=== PATIENT | female | born 1990 | race Caucasian/White ===

== ENCOUNTER 2025-02-05 14:01 | Outpatient (CLI) | payer SELFPAY ==
--- OUTSIDE RECORDS SUMMARY | 2025-02-05 14:07 | XMS_ITS | Encounter Summary ---
Author Organization Healthcare Address [address] [id number] Care Team Providers Care Millroom Supervisor Name Role Phone Pcp, No Primary Care Provider Unavailabl e Encounter Details Date Type Department Care Team (Late st Contact Info) Description 03/02/2020 [facility] [address] [place] [address] Dental, Provider, DDS [address] [place] [address] Social History Tobacco Use Types Packs/Day Years Used Date Smoking Tobacco: Never Assessed Comments Unknown Sex and Gender Information Value Date Recorded Sex Assigned at Not on file Legal Sex Female 6:09 PM EDT Gender Identity Not on file Sexual Orientation Not on file documented as of this encounter Plan of Treatment Not on file documented as of this encounter Visit Diagnoses Not on filedocumented in this encounter Additional Health Concerns Infection Onset Date Last Indicated Resolved Time COVID-19 Rule-Out 03/14/2021 03/14/2021 03/15/2021 6:25 AM EDT documented as of this encounter Care Teams Millroom Supervisor Relationship Specialty Start Date End Date Pcp, No [address] [place] [address] PCP - General 02/10/21 documented as of this encounter
--- OUTSIDE RECORDS SUMMARY | 2025-02-05 14:07 | XMS_ITS | Clinical Summary ---
Author Organization Healthcare Address [address] [place] [address] Care Team Providers Care Senior Accounting Clerk Name Role Phone Pcp, No Primary Care Provider Unavailabl e Allergies No known active allergies Medications * This document contains information received from the source organization and may not represent a complete record from that organization. acetaminophen (Tylenol) 325 MG tablet Take 2 tablets (650 mg) by mouth every 6 (six) hours. 30 tablet 1 3 Active levonorgestrel-eth inyl estradiol (Aviane, Alesse, Lessina) 0.1-20 MG-MCG tabletIndications: Encounter for initial prescription of contraceptive pills Take 1 tablet by mouth 1 (one) time each day. 84 tablet 3 3 Active Active Problems Problem Noted Date Diagnosed Date Term 05/14/2023 Resolved Problems Problem Noted Date Diagnosed Date Resolved Date Migraine without aura, not i ntractable, without status migrainosus 10/13/2022 Overview (10/13/2022): Patient denies history Immunizations Immunization Administration Dates Next Due Hep B, adult 02/18/2004,12/03/2003,09/25/2003 Influenza, Unspecified 05/17/2020,2018,04/15/2018,2016 Influenza, injectable, quadr ivalent, preservative free 06/07/2021 MMR 07/08/1996,09/06/1993 Pfizer-BioNTech COVID-19 Vac cine (Purple Cap) 12+ 07/07/2021 Tdap 03/09/2023,09/04/2016 Varicella 05/06/2018,04/05/2018 Family History Medical History Relation Name Comments Hypercholesterolemia Father Hypertension Father Clotting disorder Mother Diabetes Mother Stroke Other 1 Diabetes Other 2 JOSE MIGUEL disease Other 3 Hypertension Other 4 Kidney Infection Other 5 Hyperlipidemia Other 6 Conversions - Other Other 7 Other di seases of lung Stomach problems Other 8 Relation Name Status Comments Father Mother Other 1 Other 2 Other 3 Other 4 Other 5 Other 6 Other 7 Other 8 Social History Tobacco Use Types Packs/Day Years Used Date Smoking Tobacco: Former Smokeless Tobacco: Former Quit: 2017 Alcohol Use Standard Drinks/Week Comments Not Currently 0 (1 standard drink = 0.6 oz pure alcohol) Alcoholic Drinks/day: Social alcohol use [place] Depression Scale Answer Date Recorded [place] Depression Scale Total 8 06/20/2023 The thought of harming myself has occurred to me . Never 06/20/2023 CAGE ASSESSMENT Answer Date Recorded Cage unable to access Not on file 05/14/2023 Cage max number of drinks Not on file 2022 Cage Beverages a week Not on file 05/14/2023 Have you ever felt you should CUT down on your d rinking? 0 05/14/2023 Have you been ANNOYED by people criticizing your drinking? 0 05/14/2023 Have you felt GUILTY about your drinking? 0 05/14/2023 Have you had a drink first t jessica in the morning (EYE-CLINICAL QUALITY MANAGER) to steady your nerves or to get rid of a hangover? 0 05/14/2023 CAGE Questionnaire Score 0 023 Comments No Sex and Gender Information Value Date Recorded Sex Assigned at Not on file Legal Sex Female 6:09 PM EDT Gender Identity Not on file Sexual Orientation Not on file Last Filed Vital Signs Vital Sign Reading Time Taken Comments Blood Pressure 115/80 06/20/2023 9:09 AM EST Pulse 84 06/20/2023 9:09 AM EST Temperature 36.1 C (97 F) 06/20/2023 9:09 AM EST Respiratory Rate 18 05/16/2023 8:34 AM EDT Oxygen Saturation 97% 06/20/2023 9:09 AM EST Inhaled Oxygen Concentration - - Weight 74.6 kg (164 lb 7.4 oz) 06/20/2023 9:09 A M EST Height 174 cm (5' 8.5 ) 05/11/2023 9:00 AM EDT Body Mass Index 24.64 05/11/2023 9:00 AM EDT Plan of Treatment Health Maintenance Due Date Last Done Comments [facility]-Infant/Child/Adol SDOH Screenings 1992 [facility]-IPV Vaccines (2 of 3 - 4-dose series) 08/05/1996 07/08/1996 HPV Vaccines (1 - 3-dose series) 02/11/2007 [facility]- SDOH Screenings 02/11/2010 [facility]-Adult SDOH Screenings 02/11/2010 [id number] Vaccine ( season) 2024 08/09/2021, 07/07/2021 [facility]-Pap Smear 04/29/2024 04/29/2021, 08/07, 01/01/2015, Additional history exists [facility]-Depression Screening 06/20/2024 06/20/2023 [facility]-Influenza Vaccine (Season Ended) 2025 06/07/2021, 05/17/2020, 04/30/2019, Additional history exists [facility]-Cervical Cancer Screening 04/29/2026 [facility]-HPV/Cotest 04/29/2026 04/29/2021, 08/07, 01/01/2015, Additional history exists [facility]-DTaP,Tdap,and Td Vaccines (4 - Td or Tdap) 03/09/2033 03/09/2023, 09/04/2016, 07/08/1996 [facility]-Zoster Vaccines (1 of 2) 02/11/2042 05/06/2018, 04/05/2018 [facility]-Hepatitis B Vaccines Completed 004, 12/03/2003, 09/25/2003 [facility]-Varicella Vaccines Completed 05/06/2018, 2017 [facility]-HIV Screening Completed 10/13/2022, 04/29/2021 [facility]-Hepatitis C Screening Completed 10/13/2022, [facility]-HIB Vaccines Aged Out No longer e ligible based on patient's age to complete this topic [facility]-Hepatitis A Vaccines Aged Out No longer eligible based on patient's age to complete this topic [facility]-Pneumococcal Vaccine: Pediatrics (0 to 5 Years) and At-Risk Patients (6 to 49 Years) Aged Out No longer eligible based on patient's age to complete this topic [facility]-Rotavirus Vaccines Aged Out No lo nger eligible based on patient's age to complete this topic Goals Goal Patient Goal Type Associated Problems Recent Progress Patient-Stated? Author Delayed Delivery Care Plan CPM S22 PP LABOR (OBSTETRICS) No Open Scheduling, Background Procedures Procedure Name Priority Date/Time Associated Diagnosis Comments HEPATITIS C ANTIBODY W/REFLEX TO HCV QUANT PCR Routine 10/13/2022 11:27 AM EST 9 weeks gestation of HIV 1/2 ANTIBODY/ANTIGEN SCREEN WITH REFLEX TO HIV I/II DIFFERENTIATION Routine 10/13/2022 11:27 AM EST 9 weeks gestation of PAP TEST - CYTOLOGY Routine 04/29/2021 4 :09 PM EDT Screening for cervical cancer from Last 3 Months or Most Recently Relevant to Health Maintenance Results * HIV 1 & 2 Antibody/Antigen Screen (10/13/2022 11:27 AM EST) HIV 1 & 2 Antibody/Antigen Screen Non Reactive Non Reactive 10/13/2022 3:28 PM EST [facility] Comment:Screening for HIV 1 & 2 antibodies, and P24 antigen is NONREACTIVE. No confirmatory testing is required. Blood Venous blood specimen / Unknown Venipuncture / Unknown 10/13/2022 11:27 AM EST 10/13/2022 11:27 AM EST Eileen Felipe APRN LAB BLOOD ORDERABLES Final Result [facility] [address] [place] [address] * Hepatitis C Antibody (10/13/2022 11:27 AM EST) Hepatitis C Antibody Negative Negative 10/13/2022 3:24 PM EST [facility] Blood Venous blood specimen / Unknown Venipuncture / Unknown 10/13/2022 11:27 AM EST 10/13/2022 11:27 AM EST us Eileen Felipe PAINTER DECORATOR LAB BLOOD ORDERABLES Final Result [facility] [address] [place], [place] [id number] * Pap Smear (04/29/2021 4:09 PM EDT) Case Report Cytology Case: [id number] Authorizing Provider: Kinga Almonte MD Collected: 04/29/2021 160 Ordering Location: Medical Office Building Received: 04/29/2021 1633 Obstetrics and Gynecology First Screen: CHANA Pacheco Specimen: ThinPrep Pap Test, Liquid-Based Cervical/Vaginal, CERVICAL/VAGINAL 05/04/2021 9:35 AM EDT [facility] Interpretation NEGATIVE FOR INTRAEPITHELIAL LESION OR MALIGNANCY 05/04/2021 9:35 AM EDT [facility] at 0935 EDT Specimen Adequacy Satisfactory for evaluation; endocervical/pennington sformation zone component absent/insufficie nt. Slide examined with [employer] ThinPrep Imaging System but manually screened for technical reasons. 05/04/2021 9:35 AM EDT [facility] Cervical cytology is a screening test primarily for squamous cancers and precursors and has associated false negative and positive results. New technologies such as liquid based sampling may decrease but will not eliminate all false negative results. Regular screening and follow-up of unexplained clinical signs and symptoms are recommended to minimize false negative results. Please see the ASCCP website (www.asccp.org)fo r followup recommendations. If HPV testing was requested, correlation with the results is suggested (please call Microbiology at [phone] for results). 05/04/2021 9:35 AM EDT [facility] Menstrual Status 05/04/20 9:35 AM EDT [facility] Contraceptive History Not Applicable 05/04/2021 9:35 AM EDT [facility] Last Menstrual Period 02/10/2021 05/04/2021 9:35 AM EDT [facility] Screening Type Routine Screen 2020 9:35 AM EDT [facility] High Risk? No 05/04/2021 9:35 AM EDT [facility] HPV Testing Requested? Request HPV Testing if ASCUS (Women 25 Years or Older) 05/04/2021 9:35 AM EDT [facility] Previous Cancer History No 05/04/2021 9:35 AM EDT [facility] Swab Vaginal and cervical cytologic material / Unknown Non-blood Collection / Unknown 04/29/2021 4:09 PM EDT 04/29/2021 4:33 PM EDT us Kinga Almonte MD LAB CYTOLOGY ORDERABLES Susanne wallace [facility] [address] [place] [address] from Last 3 Months or Most Recently Relevant to Health Maintenance Additional Health Concerns Active Problems Noted Date Diagnosed Date CPM S22 PP LABOR (OBSTETRICS) 10/13/2022 Insurance [facility] Advance Directives * Full Code (Latest Code Status on File) Date Activated Date Inactivated Comments 05/14/2023 6:20 AM 05/16/2023 4:19 PM Question Answer Comments Patient has decision-making capacity? Yes Care Teams Senior Accounting Clerk Relationship Specialty Start Date End Date Pcp, No [address] [place] [address] PCP - General 02/10/21
--- OUTSIDE RECORDS SUMMARY | 2025-02-05 14:07 | XMS_ITS | Encounter Summary ---
Author Organization Healthcare Address [address] [id number] Care Team Providers Care Manager Of Drilling Name Role Phone Pcp, No Primary Care Provider Unavailabl e Encounter Details Date Type Department Care Team (Late st Contact Info) Description 03/02/2020 Abstract [facility] [address] [place] [address] Dental, Provider, DDS [address] [place] [address] Social History Tobacco Use Types Packs/Day [...] documented as of this encounter Care Teams Manager Of Drilling Relationship Specialty Start Date End Date Pcp, No [address] [place] [address] PCP - General 02/10/21 documented as of this encounter
== END 2025-02-05 23:59 | disposition home or self-care (01) ==
PROVIDERS: Visit Provider Obstetrics & Gynecology
DX: Z32.01 Encounter for pregnancy test, result positive (principal)
CPT/HCPCS: 36415; 84144; 84702

== ENCOUNTER 2025-02-27 13:24 | Outpatient (CLI) | payer SELFPAY ==
--- OUTSIDE RECORDS SUMMARY | 2025-03-02 13:36 | XMS_ITS | Encounter Summary ---
Author Organization Healthcare Address [address] [id number] Care Team Providers Care Echocardiologist Name Role Phone Pcp, No Primary Care Provider Unavailabl e Encounter Details Date Type Department Care Team (Late st Contact Info) Description 03/02/2020 [facility] [address] [place] [address] Dental, Provider, DDS [address] [place] [address] Social History Tobacco Use Types Packs/Day [...] documented as of this encounter Care Teams Echocardiologist Relationship Specialty Start Date End Date Pcp, No [address] [place] [address] PCP - General 02/10/21 documented as of this encounter
--- OUTSIDE RECORDS SUMMARY | 2025-03-02 13:36 | XMS_ITS | Encounter Summary ---
Author Organization Healthcare Address [address] [phone] Care Team Providers Care Elevator Serviceman Name Role Phone Pcp, No Primary Care Provider Unavailabl e Encounter Details Date Type Department Care Team (Late st Contact Info) Description 03/02/2020 [facility] [address] [place] [address] Dental, Provider, DDS [address] [place] [address] Social History Tobacco Use Types Packs/Day [...] documented as of this encounter Care Teams Elevator Serviceman Relationship Specialty Start Date End Date Pcp, No [address] [place] [address] PCP - General 02/10/21 documented as of this encounter
--- OUTSIDE RECORDS SUMMARY | 2025-03-02 13:36 | XMS_ITS | Clinical Summary ---
Author Organization Healthcare Address [address] [place] [address] Care Team Providers Care Chefs Name Role Phone Pcp, No Primary Care [...] pure alcohol) Alcoholic Drinks/day: Social alcohol use [place] Depression Scale Answer Date Recorded [place] Depression Scale Total 8 06/20/2023 The thought [...] drink first t jessica in the morning (EYE-CLERICAL ADMINISTRATOR) to steady your nerves or to get [...] SDOH Screenings 02/11/2010 [facility]-Adult SDOH Screenings 02/11/2010 [id number] Vaccine (3 - season) 2024 08/09/2021, 07/07/2021 [facility]-Pap Smear 04/29/2024 04/29/2021, 08/07, 01/01/2015, Additional history exists [facility]-Depression Screening 06/20/2024 06/20/2023 [facility]-Influenza Vaccine (#1) 04/06/202506/07, 05/17/2020, 04/30/2019, Additional history exists [facility]-Cervical Cancer [...] Reactive Non Reactive 10/13/2022 3:28 PM EST [facility] Comment:Screening for HIV 1 & 2 antibodies, and P24 antigen is NONREACTIVE. No confirmatory testing is required. Blood Venous blood specimen / Unknown Venipuncture / Unknown 10/13/2022 11:27 AM EST 10/13/2022 11:27 AM EST Eileen Felipe APRN LAB BLOOD ORDERABLES Final Result [facility] [address] [place] [address] * Hepatitis C Antibody (10/13/2022 11:27 AM EST) Hepatitis C Antibody Negative Negative 10/13/2022 3:24 PM EST [facility] Blood Venous blood specimen / Unknown Venipuncture / Unknown 10/13/2022 11:27 AM EST 10/13/2022 11:27 AM EST us Eileen Felipe VENEER DEPARTMENT MANAGER LAB BLOOD ORDERABLES Final Result [facility] [address] [place], [place] [address] * Pap Smear (04/29/2021 4:09 PM EDT) Case Report Cytology Case: [id number] Authorizing Provider: Kinga Almonte MD Collected: 04/29/2021 1605 Ordering Location: Medical Office Building Received: 04/29/2021 1633 Obstetrics and Gynecology First Screen: CHANA Pacheco Specimen: ThinPrep Pap Test, Liquid-Based Cervical/Vaginal, CERVICAL/VAGINAL 05/04/2021 9:35 AM EDT [facility] Interpretation NEGATIVE FOR INTRAEPITHELIAL LESION OR MALIGNANCY 05/04/2021 9:35 AM EDT [facility] at 0935 EDT Specimen Adequacy Satisfactory for evaluation; endocervical/pennington sformation zone component absent/insufficie nt. Slide examined with [employer] ThinPrep Imaging System but manually screened for technical reasons. 05/04/2021 9:35 AM EDT [facility] Cervical cytology is a screening test [...] results is suggested (please call Microbiology at [phone] for results). 05/04/2021 9:35 AM EDT [facility] Menstrual Status 05/04/20 9:35 AM EDT [facility] Contraceptive History Not Applicable 05/04/2021 9:35 AM EDT [facility] Last Menstrual Period 02/10/2021 05/04/2021 9:35 [...] ORDERABLES Susanne wallace [facility] [address] [place] [address] from Last 3 Months or Most Recently Relevant to Health Maintenance Additional Health Concerns Active Problems Noted Date Diagnosed Date CPM S22 PP LABOR (OBSTETRICS) 10/13/2022 Insurance [facility] Advance Directives * Full Code (Latest Code Status on File) Date Activated Date Inactivated Comments 05/14/2023 6:20 AM 05/16/2023 4:19 PM Question Answer Comments Patient has decision-making capacity? Yes Care Teams Chefs Relationship Specialty Start Date End Date Pcp, No [address] [place] [address] PCP - General 02/10/21
[2025-03-02 21:12] LABS: Neisseria gonorrhoeae, NAA Negative (Negative)
== END 2025-02-27 23:59 | disposition home or self-care (01) ==
LOC: LAB.DROPOF 03-02 13:25
PROVIDERS: Visit Provider Obstetrics & Gynecology
DX: Z34.90 Encounter for supervision of normal pregnancy, unspecified, unspecified trimester (principal)
CPT/HCPCS: 87491; 87591

== ENCOUNTER 2025-04-09 14:18 | Outpatient (CLI) | payer OTHER, SELFPAY ==
--- OUTSIDE RECORDS SUMMARY | 2025-04-09 14:21 | XMS_ITS | Encounter Summary ---
Author Organization Healthcare Address [address] [phone] Care Team Providers Care Social Work Manager Name Role Phone Pcp, No Primary Care Provider Unavailabl e Encounter Details Date Type Department Care Team (Late st Contact Info) Description 03/02/2020 [facility] [address] [place] [address] Dental, Provider, DDS [address] [place] [address] Social History Tobacco Use Types Packs/Day [...] documented as of this encounter Care Teams Social Work Manager Relationship Specialty Start Date End Date Pcp, No [address] [place] [address] PCP - General 02/10/21 documented as of this encounter
--- OUTSIDE RECORDS SUMMARY | 2025-04-09 14:21 | XMS_ITS | Clinical Summary ---
Author Organization Healthcare Address [address] [place] [address] Care Team Providers Care Back Sewer Name Role Phone Pcp, No Primary Care [...] pure alcohol) Alcoholic Drinks/day: Social alcohol use [place] Depression Scale Answer Date Recorded [place] Depression Scale Total 8 06/20/2023 The thought [...] drink first t jessica in the morning (EYE-AGENT CONTRACT CLERK) to steady your nerves or to get [...] Health Maintenance Due Date Last Done Comments [facility]-/Child/Adol SDOH Screenings 1992 [facility]-IPV Vaccines (2 of 3 - 4-dose series) 08/05/1996 07/08/1996 [facility]- SDOH Screenings 02/11/2010 [facility]-Adult SDOH Screenings 02/11/2010 HPV Vaccines (1 - 3-dose SCDM series) 02/11/2019 [id number] Vaccine (3 - season) 2024 08/09/2021, 07/07/2021 [...] Reactive Non Reactive 10/13/2022 3:28 PM EST [facility] Comment:Screening for HIV 1 & 2 antibodies, and P24 antigen is NONREACTIVE. No confirmatory testing is required. Blood Venous blood specimen / Unknown Venipuncture / Unknown 10/13/2022 11:27 AM EST 10/13/2022 11:27 AM EST us Eileen Felipe APRN LAB BLOOD ORDERABLES Final Result [facility] [address] [place] [address] * Hepatitis C Antibody (10/13/2022 11:27 AM EST) Hepatitis C Antibody Negative Negative 10/13/2022 3:24 PM EST [facility] Blood Venous blood specimen / Unknown Venipuncture / Unknown 10/13/2022 11:27 AM EST 10/13/2022 11:27 AM EST Eielen Felipe OUTPATIENT RECEPTIONIST LAB BLOOD ORDERABLES Final Result Performing Organization Address City/State/ZIP Co il Phone Number [facility] [address] [place] [address] * Pap Smear (04/29/2021 4:09 PM EDT) Case Report Cytology Case: [id number] Authorizing Provider: Kinga Almonte MD Collected: 04/29/2021 1609 Ordering Location: Medical Office Building Received: 04/29/2021 1633 Obstetrics and Gynecology First Screen: CHANA Pacheco Specimen: ThinPrep Pap Test, Liquid-Based Cervical/Vaginal, CERVICAL/VAGINAL 05/04/2021 9:35 AM EDT [facility] Interpretation NEGATIVE FOR INTRAEPITHELIAL LESION OR MALIGNANCY 05/04/2021 9:35 AM EDT [facility] at 0935 EDT Specimen Adequacy Satisfactory for evaluation; endocervical/pennington sformation zone component absent/insufficie nt. Slide examined with [employer] ThinPrep Imaging System but manually screened for technical reasons. 05/04/2021 9:35 AM EDT [facility] Cervical cytology is a screening [...] results is suggested (please call Microbiology at [phone] for results). 05/04/2021 9:35 AM EDT [facility] Menstrual Status 05/04/20 9:35 AM EDT [facility] Contraceptive History Not Applicable 05/04/2021 9:35 AM EDT [facility] Last Menstrual Period 02/10/2021 05/04/2021 [...] MD LAB CYTOLOGY ORDERABLES Susanne wallace Result [facility] [address] [place] [address] from Last 3 Months or Most Recently Relevant to Health Maintenance Additional Health Concerns Active Problems Noted Date Diagnosed Date CPM S22 PP LABOR (OBSTETRICS) 10/13/2022 Insurance [facility] Advance Directives * Full Code (Latest Code Status on File) Date Activated Date Inactivated Comments 05/14/2023 6:20 AM 05/16/2023 4:19 PM Question Answer Comments Patient has decision-making capacity? Yes Care Teams Back Sewer Relationship Specialty Start Date End Date Pcp, No [address] [place] [address] PCP - General 02/10/21
--- OUTSIDE RECORDS SUMMARY | 2025-04-09 14:21 | XMS_ITS | Encounter Summary ---
Author Organization Healthcare Address [address] [phone] Care Team Providers Care Wire Web Worker Name Role Phone Pcp, No Primary Care Provider Unavailabl e Encounter Details Date Type Department Care Team (Late st Contact Info) Description 03/02/2020 [facility] [address] [place] [address] Dental, Provider, DDS [address] [place] [address] Social History Tobacco Use Types Packs/Day [...] documented as of this encounter Care Teams Wire Web Worker Relationship Specialty Start Date End Date Pcp, No [address] [place] [address] PCP - General 02/10/21 documented as of this encounter
[2025-04-09 15:09] LABS: Hematocrit 36.0 % (37.0-47.0); Hemoglobin 11.5 g/dL (12.2-16.2); Immature Granulocytes % 0.3 %; Mean Corpuscular HGB Conc 31.9 g/dL (31.8-35.4); Mean Corpuscular Hemoglobin 28.8 pg (27.0-31.2); Mean Corpuscular Volume 90.2 fl (81-99); Nucleated Red Blood Cells % 0 %; Platelet Count 191 K/mm3 (142-424); Red Blood Count 3.99 M/mm3 (4.20-5.40); Red Cell Distribution Width-SD 44.7 fL; White Blood Count 8.8 K/mm3 (4.8-10.8)
[2025-04-09 16:37] LABS: Hepatitis C Ab Qual. W/ RFX NEGATIVE (Negative)
[2025-04-10 07:49] LABS: RPR W/RFX Titers Nonreactive (Nonreactive)
[2025-04-11 07:25] LABS: Hepatitis B Surface Antigen Negative (Negative)
[2025-04-11 08:14] LABS: Rubella Antibodies, IgG 1.62 index (Immune >0.99)
== END 2025-04-09 23:59 | disposition home or self-care (01) ==
LOC: LAB 14:18
PROVIDERS: PCP Family Medicine; Visit Provider Obstetrics & Gynecology
DX: Z34.90 Encounter for supervision of normal pregnancy, unspecified, unspecified trimester (principal)
CPT/HCPCS: 36415; 85025; 86592; 86762; 86803; 86850; 87340; 87389

== ENCOUNTER 2025-04-16 08:44 | Outpatient (CLI) | payer OTHER, SELFPAY ==
--- NOTE | 2025-04-16 09:00 | US_ITS ---
PROCEDURE: US OB /MATERNAL DETAIL CLINICAL INDICATION: Scedule 20wk anatomy scan for 04-13-25 COMPARISON: No exams were available for comparison FINDINGS: Transabdominal sonographic images of the pelvis were obtained. From her established due date she is 20 weeks 3 days. Single viable intrauterine gestation. Cephalic position. Placenta: Anteriorplacenta grade 1. There is an average amount of fluid. The cervix appears satisfactory. Closed and measuring 3.45 cm in length. Complete survey performed and was unremarkable on the submitted images as in PACS. No discrete anomalies identified on survey imaging by technologist. Active fetus. Three-vessel cord with satisfactory umbilical cord insertion. 4- chamber heart noted. Situs, aortic arch, LVOT, RVOT, three-vessel view appear normal. Survey of brain & ventricles Unremarkable. Cerebellum, thalamus, choroid plexus, cisterna magna appear normal. Face and neck survey unremarkable. Profile, nasion, lips and nose appeared normal. Diaphragm and chest views unremarkable. Abdomen: Both kidneys noted and unremarkable. Stomach and bladder noted and satisfactory. Spine: Survey of the spine satisfactory with no anomalies identified nor imaged. Cervical, thoracic, lower spine appear normal. Both arms and legs noted. Amniotic Fluid: Adequate. MVP 5.64 cm Measurements: Average ultrasound age 20weeks 1day. Estimated due date by ultrasound age 0109/02/2025. Estimated weight 321g BPD = 20weeks 0 days HC = 20weeks 1day AC = 20weeks 0 days FL = 20weeks 0 days Growth Percentile= 20 Heart Rate = 160bpm Cerebellum = 20weeks 2days Humerus = 20weeks 1day HC/AC is 1.21 FL/BPD is 0.69 FL/AC is 0.22 IMPRESSION: 1. Viable fetus in the cephalic presentation with anterior placenta grade 1. 2. The fluid is within normal limits with an MVP 5.64 cm. 3. Anatomical scan appears normal. 4. biometry is consistent with the dates. Dictated by: Chago Abbott MD 04/17/2025 08:55 Chago Abbott MD in OV 04/17/2025 08:55
--- OUTSIDE RECORDS SUMMARY | 2025-04-16 09:01 | XMS_ITS | Encounter Summary ---
Author Organization Healthcare Address [address] [id number] Care Team Providers Care Panel Flow Machine Operator Name Role Phone Pcp, No Primary Care Provider Unavailabl e Encounter Details Date Type Department Care Team (Late st Contact Info) Description 03/02/2020 [facility] [address] [place] [address] Dental, Provider, DDS [address] [place] [address] Social History Tobacco Use Types Packs/Day [...] documented as of this encounter Care Teams Panel Flow Machine Operator Relationship Specialty Start Date End Date Pcp, No [address] [place] [address] PCP - General 02/10/21 documented as of this encounter
--- OUTSIDE RECORDS SUMMARY | 2025-04-16 09:01 | XMS_ITS | Encounter Summary ---
Author Organization Healthcare Address [address] [id number] Care Team Providers Care Customer Engagement Manager Name Role Phone Pcp, No Primary Care Provider Unavailabl e Encounter Details Date Type Department Care Team (Late st Contact Info) Description 03/02/2020 [facility] [address] [place] [address] Dental, Provider, DDS [address] [place] [address] Social History Tobacco Use Types Packs/Day [...] documented as of this encounter Care Teams Customer Engagement Manager Relationship Specialty Start Date End Date Pcp, No [address] [place] [address] PCP - General 02/10/21 documented as of this encounter
--- OUTSIDE RECORDS SUMMARY | 2025-04-16 09:01 | XMS_ITS | Clinical Summary ---
Author Organization Healthcare Address [address] [place] [address] Care Team Providers Care Bobbin Disker Name Role Phone Pcp, No Primary Care [...] pure alcohol) Alcoholic Drinks/day: Social alcohol use [place] Depression Scale Answer Date Recorded [place] Depression Scale Total 8 06/20/2023 The thought [...] drink first t jessica in the morning (EYE-DORR OPERATOR) to steady your nerves or to get [...] Vaccines (1 - 3-dose SCDM series) 02/11/2019 [facility]-Pap Smear 04/29/2024 04/29/2021, 08/07, 01/01/2015, Additional history exists [facility]-Depression Screening 06/20/2024 06/20/2023 [id number]-90 Vaccine (3 - season) 2025 08/09/2021, 07/07/2021 [facility]-Influenza Vaccine (#1) 04/06/202506/07, 05/17/2020, 04/30/2019, Additional [...] Result [facility] [address] [place] [id number] * Hepatitis C Antibody (10/13/2022 11:27 AM EST) Hepatitis C Antibody Negative Negative 10/13/2022 3:24 PM EST [facility] Blood Venous blood specimen / Unknown Venipuncture / Unknown 10/13/2022 11:27 AM EST 10/13/2022 11:27 AM EST Eileen Felipe ROUGHER FOR CEMENT LAB BLOOD ORDERABLES Final Result Performing Organization Address City/State/ZIP [place] Phone Number [facility] [address] [place] [address] * Pap Smear (04/29/2021 4:09 PM EDT) Case Report Cytology Case: [id number] Authorizing Provider: Kinga Almonte MD Collected: 04/29/2021 [...] zone component absent/insufficie nt. Slide examined with [employer] ThinPrep Imaging System but manually screened for [...] results is suggested (please call Microbiology at [phone] for results). 05/04/2021 9:35 AM EDT HEALTHCARE [...] EDT 04/29/2021 4:33 PM EDT us Kinga Almonet MD LAB CYTOLOGY ORDERABLES Susanne wallace Result [facility] [address] [place] [address] from Last 3 Months or Most Recently Relevant to Health Maintenance Additional Health Concerns Active Problems Noted Date Diagnosed Date CPM S22 PP LABOR (OBSTETRICS) 10/13/2022 Insurance [facility] Advance Directives * Full Code (Latest Code Status on File) Date Activated Date Inactivated Comments 05/14/2023 6:20 AM 05/16/2023 4:19 PM Question Answer Comments Patient has decision-making capacity? Yes Care Teams Bobbin Disker Relationship Specialty Start Date End Date Pcp, No [address] [place] [address] PCP - General 02/10/21
== END 2025-04-16 23:59 | disposition home or self-care (01) ==
LOC: RAD 08:45
PROVIDERS: PCP Obstetrics & Gynecology; Visit Provider Obstetrics & Gynecology
DX: Z34.82 Encounter for supervision of other normal pregnancy, second trimester (principal); Z3A.20 20 weeks gestation of pregnancy
CPT/HCPCS: 76811; 76817

== ENCOUNTER 2025-06-03 09:45 | Outpatient (CLI) | payer OTHER, SELFPAY ==
--- OUTSIDE RECORDS SUMMARY | 2025-06-03 10:08 | XMS_ITS | Clinical Summary ---
Author Organization Healthcare Address [address] [place] [address] Care Team Providers Care Registered Dietitian Name Role Phone Pcp, No Primary Care [...] 84 tablet 3 3 Active Active Problems No known active problems Resolved Problems Problem Noted Date Diagnosed Date Resolved Date Term 05/14/2023 04/26/2025 Migraine without aura, not i ntractable, without status migrainosus 10/13/2022 Overview (10/13/2022): Patient denies history Immunizations Immunization Administration Dates Next Due Hep B, adult 02/18/2004,12/03/2003,09/25/2003 Influenza, Unspecified 05/17/2020,2018,04/15/2018,01/30/ 2017 Influenza, injectable, quadr ivalent, preservative free 06/07/2021 [...] Smoking Tobacco: Former Smokeless Tobacco: Former Quit: 2018 Alcohol Use Standard Drinks/Week Comments Not Currently 0 (1 standard drink = 0.6 oz pure alcohol) Alcoholic Drinks/day: Social alcohol use [place] Depression Scale Answer Date Recorded [place] Depression Scale Total 8 06/20/2023 The thought [...] drink first t jessica in the morning (EYE-TENTERING MACHINE OFF BEARER) to steady your nerves or to get rid of a hangover? 0 05/14/2023 CAGE Questionnaire Score 0 023 Comments Unknown Sex and Gender Information Value [...] Additional history exists [facility]-Depression Screening 06/20/2024 06/20/2023 [id number] Vaccine ( season) 2025 08/09/2021, 07/07/2021 [facility]-Influenza Vaccine (#1) [...] 2 Antibody/Antigen Screen (10/13/2022 11:27 AM EST) Pathologist [facility] HIV 1 & 2 Antibody/Antigen Screen Non Reactive Non Reactive 10/13/2022 3:28 PM EST [facility] Comment:Screening for HIV 1 & 2 antibodies, and P24 antigen is NONREACTIVE. No confirmatory testing is required. Blood Venous blood specimen / Unknown Venipuncture / Unknown 10/13/2022 11:27 AM EST 10/13/2022 11:27 AM EST us Eileen Felipe APRN LAB BLOOD ORDERABLES Final Result [facility] [address] [place] [address] * Hepatitis C Antibody (10/13/2022 11:27 AM EST) Hepatitis C Antibody Negative Negative 10/13/2022 3:24 PM EST [facility] Blood Venous blood specimen / Unknown Venipuncture / Unknown 10/13/2022 11:27 AM EST 10/13/2022 11:27 AM EST us Eileen Felipe EXERCISE EQUIPMENT REPAIR TECHNICIAN LAB BLOOD ORDERABLES Final Result [facility] [address] [place] [address] * Pap Smear (04/29/2021 4:09 PM EDT) Case Report Cytology Case: [id number] Authorizing Provider: Kinga Almonte MD Collected: 04/29/2021 1609 Ordering Location: Medical Office Building Received: 04/29/2021 1633 Obstetrics and Gynecology First Screen: Roslyn [place], CHANA Specimen: ThinPrep Pap Test, Liquid-Based Cervical/Vaginal, CERVICAL/VAGINAL 05/04/2021 9:35 AM EDT [facility] Interpretation NEGATIVE FOR INTRAEPITHELIAL LESION OR MALIGNANCY 05/04/2021 9:35 AM EDT [facility] at 0935 EDT Specimen Adequacy Satisfactory for evaluation; endocervical/[place]ning[place] sformation zone component absent/insufficie nt. Slide examined with [employer] ThinPrep Imaging System but manually screened for technical reasons. 05/04/2021 9:35 AM EDT [facility] Cervical cytology is a screening test [...] results is suggested (please call Microbiology at [phone] for results). 05/04/2021 9:35 AM EDT [facility] Menstrual Status 05/04/20 9:35 AM EDT [facility] Contraceptive History Not Applicable 05/04/2021 9:35 AM EDT [facility] Last Menstrual Period 02/10/2021 05/04/2021 9:35 [...] Susanne wallace Result [facility] [address] [place] [address] from Last 3 Months or Most Recently Relevant to Health Maintenance Additional Health Concerns Active Problems Noted Date Diagnosed Date CPM S22 PP LABOR (OBSTETRICS) 10/13/2022 Insurance Advance Directives * Full Code (Latest Code Status on File) Date Activated Date Inactivated Comments 05/14/2023 6:20 AM 05/16/2023 4:19 PM Question Answer Comments Patient has decision-making capacity? Yes Care Teams Registered Dietitian Relationship Specialty Start Date End Date Pcp, No [address] [place] [address] PCP - General 02/10/21
--- OUTSIDE RECORDS SUMMARY | 2025-06-03 10:08 | XMS_ITS | Encounter Summary ---
Author Organization Healthcare Address [address] [id number] Care Team Providers Care Medical Laboratory Scientist Name Role Phone Pcp, No Primary Care Provider Unavailabl e Encounter Details Date Type Department Care Team (Late st Contact Info) Description 03/02/2020 [facility] [address] [place] [address] Dental, Provider, DDS [address] [place] [address] Social History Tobacco Use Types Packs/Day [...] documented as of this encounter Care Teams Medical Laboratory Scientist Relationship Specialty Start Date End Date Pcp, No [address] [place] [address] PCP - General 02/10/21 documented as of this encounter
--- OUTSIDE RECORDS SUMMARY | 2025-06-03 10:08 | XMS_ITS | Encounter Summary ---
Author Organization Healthcare Address [address] [id number] Care Team Providers Care Special Procedures Tech Name Role Phone Pcp, No Primary Care Provider Unavailabl e Encounter Details Date Type Department Care Team (Late st Contact Info) Description 03/02/2020 [facility] [address] [place] [address] Dental, Provider, DDS [address] [place] [address] Social History Tobacco Use Types Packs/Day [...] documented as of this encounter Care Teams Special Procedures Tech Relationship Specialty Start Date End Date Pcp, No [address] [place] [address] PCP - General 02/10/21 documented as of this encounter
[2025-06-03 11:09] LABS: Glucose 1 Hour 153 mg/dL (74-100)
== END 2025-06-03 23:59 | disposition home or self-care (01) ==
LOC: LAB 09:45
PROVIDERS: Visit Provider Nurse Practitioner Obstetrics & Gynecology
DX: Z34.82 Encounter for supervision of other normal pregnancy, second trimester (principal); Z3A.00 Weeks of gestation of pregnancy not specified
CPT/HCPCS: 36415; 82947

== ENCOUNTER 2025-06-11 07:43 | Outpatient (CLI) | payer OTHER, SELFPAY ==
--- OUTSIDE RECORDS SUMMARY | 2025-06-11 07:46 | XMS_ITS | Encounter Summary ---
Author Organization Healthcare Address [address] [address]236 Care Team Providers Care Health Practice Manager Name Role Phone Pcp, No Primary Care Provider Unavailabl e Encounter Details Date Type Department Care Team (Late st Contact Info) Description 03/02/2020 [facility] [address] [place] [address] Dental, Provider, DDS [address] [place] [address] Social History Tobacco Use Types Packs/Day [...] documented as of this encounter Care Teams Health Practice Manager Relationship Specialty Start Date End Date Pcp, No [address] [place] [address] PCP - General 02/10/21 documented as of this encounter
--- OUTSIDE RECORDS SUMMARY | 2025-06-11 07:46 | XMS_ITS | Clinical Summary ---
Author Organization Healthcare Address [address] [place] [address] Care Team Providers Care Edge Trimming Machine Operator Name Role Phone Pcp, No [...] pure alcohol) Alcoholic Drinks/day: Social alcohol use [place] Depression Scale Answer Date Recorded [place] Depression Scale Total 8 06/20/2023 The thought [...] drink first t jessica in the morning (EYE-UNDERGROUND MINING SECTION FOREMAN) to steady your nerves or to get [...] Additional history exists [facility]-Depression Screening 06/20/2024 06/20/2023 [id number] Vaccine ( season) 2025 08/09/2021, 07/07/2021 [facility]-Influenza [...] Antibody/Antigen Screen (10/13/2022 11:27 AM EST) Pathologist [facility] HIV 1 & 2 Antibody/Antigen Screen Non Reactive Non Reactive 10/13/2022 3:[address] [facility] Comment:Screening for HIV 1 & 2 antibodies, and P24 antigen is NONREACTIVE. No confirmatory testing is required. Blood Venous blood specimen / Unknown Venipuncture / Unknown 10/13/2022 11:27 AM EST 10/13/2022 11:27 AM EST us Eileen Felipe APRN LAB BLOOD ORDERABLES Final Result [facility] [address] [place] [address] * Hepatitis C Antibody (10/13/2022 11:27 AM EST) Hepatitis C Antibody Negative Negative 10/13/2022 3:[address] [facility] Blood Venous blood specimen / Unknown Venipuncture / Unknown 10/13/2022 11:27 AM EST 10/13/2022 11:27 AM EST us Eileen Felipe DATA SOFTWARE ENGINEER LAB BLOOD ORDERABLES Final Result [facility] [address] [place] [address] * Pap Smear (04/29/2021 4:09 PM EDT) Case Report Cytology Case: [id number] Authorizing Provider: Kinga Almonte MD Collected: 04/29/2021 1609 Ordering Location: Medical Office Building Received: 04/29/2021 1633 Obstetrics and Gynecology First Screen: Roslyn Sims, CHANA Specimen: ThinPrep Pap Test, Liquid-Based Cervical/Vaginal, CERVICAL/VAGINAL 05/04/2021 9:[address] [facility] Interpretation NEGATIVE FOR INTRAEPITHELIAL LESION OR MALIGNANCY 05/04/2021 9:[address] [facility] at 0935 EDT Specimen Adequacy Satisfactory for evaluation; endocervical/penning[place] sformation zone component absent/insufficie nt. Slide examined with [employer] ThinPrep Imaging System but manually screened for technical reasons. 05/04/2021 9:[address] [facility] Cervical cytology is a screening [...] results is suggested (please call Microbiology at [phone] for results). 05/04/2021 9:[address] [facility] Menstrual Status 05/04/20 9:[address] [facility] Contraceptive History Not Applicable 05/04/2021 9:[address] [facility] Last Menstrual Period 02/10/2021 05/04/2021 [...] Susanne wallace Result [facility] [address] [place] [address] from Last 3 Months or Most Recently Relevant to Health Maintenance Additional Health Concerns Active Problems Noted Date Diagnosed Date CPM S22 PP LABOR (OBSTETRICS) 10/13/2022 Insurance Advance Directives * Full Code (Latest Code Status on File) Date Activated Date Inactivated Comments 05/14/2023 6:20 AM 05/16/2023 4:19 PM Question Answer Comments Patient has decision-making capacity? Yes Care Teams Edge Trimming Machine Operator Relationship Specialty Start Date End Date Pcp, No [address] [place] [address] PCP - General 02/10/21
--- OUTSIDE RECORDS SUMMARY | 2025-06-11 07:46 | XMS_ITS | Encounter Summary ---
Author Organization Healthcare Address [address] [id number] Care Team Providers Care Environmental Consultant Name Role Phone Pcp, No Primary Care Provider Unavailabl e Encounter Details Date Type Department Care Team (Late st Contact Info) Description 03/02/2020 [facility] [address] [place] [address] Dental, Provider, DDS [address] [place] [address] Social History Tobacco Use Types Packs/Day [...] documented as of this encounter Care Teams Environmental Consultant Relationship Specialty Start Date End Date Pcp, No [address] [place] [address] PCP - General 02/10/21 documented as of this encounter
[2025-06-11 08:41] LABS: Glucose,Fasting 89 mg/dl (74-100)
[2025-06-11 09:37] LABS: Glucose 1 Hour 163 mg/dL (74-100)
[2025-06-11 10:41] LABS: Glucose 2 Hour 156 mg/dL (74-100)
[2025-06-11 11:26] LABS: Glucose 3 Hour 102 mg/dL (74-100)
== END 2025-06-11 23:59 | disposition home or self-care (01) ==
LOC: LAB 07:44
PROVIDERS: Visit Provider Obstetrics & Gynecology
DX: Z34.82 Encounter for supervision of other normal pregnancy, second trimester (principal); Z3A.00 Weeks of gestation of pregnancy not specified
CPT/HCPCS: 36415; 82951

== ENCOUNTER 2025-06-26 09:16 | Outpatient (CLI) | payer OTHER, SELFPAY ==
--- NOTE | 2025-06-26 09:15 | US_ITS ---
PROCEDURE: US OB FOLLOW UP CLINICAL INDICATION: growth COMPARISON: US US OB /MATERNAL DETAIL from 04/16/2025 FINDINGS: Transabdominal sonographic images of the pelvis were obtained. The following parameters are obtained: From her established due date she is 30weeks 4days Viable fetus in the cephalic presentation with an anterior placenta grade 1. The cervix measures 3.31 cm in length heart rate: 129bpm bpm. BPD: 30weeks 1day, 26 percentile HC: 31weeks 0 days, 25 percentile AC: 30weeks 5days, 46 percentile FL: 29weeks 1day, 6 percentile HC/AC: 1.07 FL/BPD: 0.73 FL/AC: 0.21 Growth percentile: 23 Amniotic fluid: MVP 4.75 cm No obvious anomalies evident. Stomach, bladder, kidneys, three-vessel cord appear normal. IMPRESSION: 1. Viable fetus in the cephalic presentation with an anterior placenta grade 1. 2. The fluid is within normal limits with an MVP 4.75 cm. 3. There has been good interval growth with the fetus currently 23rd percentile. 4. Limited anatomical scan appears normal. Dictated by: Chago Abbott MD 06/27/2025 07:36 Chago Abbott MD in OV 06/27/2025 07:36
--- OUTSIDE RECORDS SUMMARY | 2025-06-26 09:34 | XMS_ITS | Encounter Summary ---
Author Organization Healthcare Address [address] [id number] Care Team Providers Care Computer Information Systems Professor Name Role Phone Pcp, No Primary Care Provider Unavailabl e Encounter Details Date Type Department Care Team (Late st Contact Info) Description 03/02/2020 [facility] [address] [place] [address] Dental, Provider, DDS [address] [place] [address] Social History Tobacco Use Types Packs/Day [...] documented as of this encounter Care Teams Computer Information Systems Professor Relationship Specialty Start Date End Date Pcp, No [address] [place] [address] PCP - General 02/10/21 documented as of this encounter
--- OUTSIDE RECORDS SUMMARY | 2025-06-26 09:34 | XMS_ITS | Encounter Summary ---
Author Organization Healthcare Address [address] [phone] Care Team Providers Care Supervisor Instrument Maintenance Name Role Phone Pcp, No Primary Care Provider Unavailabl e Encounter Details Date Type Department Care Team (Late st Contact Info) Description 03/02/2020 [facility] [address] [place] [address] Dental, Provider, DDS [address] [place] [address] Social History Tobacco Use Types Packs/Day [...] documented as of this encounter Care Teams Supervisor Instrument Maintenance Relationship Specialty Start Date End Date Pcp, No [address] [place] [address] PCP - General 02/10/21 documented as of this encounter
--- OUTSIDE RECORDS SUMMARY | 2025-06-26 09:34 | XMS_ITS | Clinical Summary ---
Author Organization Healthcare Address [address] [place] [address] Care Team Providers Care Thread Cutter Name Role Phone Pcp, No Primary Care [...] pure alcohol) Alcoholic Drinks/day: Social alcohol use [place] Depression Scale Answer Date Recorded [place] Depression Scale Total 8 06/20/2023 The thought [...] drink first t jessica in the morning (EYE-PROCESS ENGINEERING INTERN) to steady your nerves or to get [...] Additional history exists [facility]-Depression Screening 06/20/2024 06/20/2023 [id number]-10 Vaccine ( season) 2025 08/09/2021, 07/07/2021 [facility]-Influenza [...] Reactive Non Reactive 10/13/2022 3:28 PM EST [facility] Comment:Screening for HIV 1 & 2 antibodies, and P24 antigen is NONREACTIVE. No confirmatory testing is required. Blood Venous blood specimen / Unknown Venipuncture / Unknown 10/13/2022 11:27 AM EST 10/13/2022 11:27 AM EST us Eileen Felipe APRN LAB BLOOD ORDERABLES Final Result [facility] [address] [place] [address] * Hepatitis C Antibody (10/13/2022 11:27 AM EST) Hepatitis C Antibody Negative Negative 10/13/2022 3:24 PM EST [facility] Blood Venous blood specimen / Unknown Venipuncture / Unknown 10/13/2022 11:27 AM EST 10/13/2022 11:27 AM EST us Eileen Felipe CODING TECHNICIAN LAB BLOOD ORDERABLES Final Result [facility] [address] [place] [address] * Pap Smear (04/29/2021 4:09 PM EDT) Case Report Cytology Case: [id number] Authorizing Provider: Kinga Almonte MD Collected: 04/29/2021 1609 Ordering Location: Medical Office Building Received: 04/29/2021 1633 Obstetrics and Gynecology First Screen: Roslyn Sims, CHANA Specimen: ThinPrep Pap Test, Liquid-Based Cervical/Vaginal, CERVICAL/VAGINAL 05/04/2021 9:35 AM EDT [facility] Interpretation NEGATIVE FOR INTRAEPITHELIAL LESION OR MALIGNANCY 05/04/2021 9:35 AM EDT [facility] at 0935 EDT Specimen Adequacy Satisfactory for evaluation; endocervical/[place] sformation zone component absent/insufficie nt. Slide examined with [employer] ThinPrep Imaging System but manually screened for technical reasons. 05/04/2021 9:35 AM EDT [facility] Cervical cytology is a screening [...] results is suggested (please call Microbiology at [phone] for results). 05/04/2021 9:35 AM EDT [facility] Menstrual Status 05/04/20 9:35 AM EDT [facility] Contraceptive History Not Applicable 05/04/2021 9:35 AM EDT [facility] Last Menstrual Period 02/10/2021 05/04/2021 [...] Susanne wallace Result [facility] [address] [place] [address] from Last 3 Months or Most Recently Relevant to Health Maintenance Additional Health Concerns Active Problems Noted Date Diagnosed Date CPM S22 PP LABOR (OBSTETRICS) 10/13/2022 Insurance Advance Directives * Full Code (Latest Code Status on File) Date Activated Date Inactivated Comments 05/14/2023 6:20 AM 05/16/2023 4:19 PM Question Answer Comments Patient has decision-making capacity? Yes Care Teams Thread Cutter Relationship Specialty Start Date End Date Pcp, No [address] [place] [address] PCP - General 02/10/21
== END 2025-06-26 23:59 | disposition home or self-care (01) ==
LOC: RAD 09:16
PROVIDERS: PCP Obstetrics & Gynecology; Visit Provider Obstetrics & Gynecology
DX: O36.63X0 Maternal care for excessive fetal growth, third trimester, not applicable or unspecified (principal); Z3A.30 30 weeks gestation of pregnancy
CPT/HCPCS: 76816

== ENCOUNTER 2025-08-04 10:15 | Outpatient (CLI) | payer OTHER, SELFPAY ==
--- OUTSIDE RECORDS SUMMARY | 2025-08-05 10:22 | XMS_ITS | Encounter Summary ---
Author Organization Healthcare Address [address] [phone] Care Team Providers Care Network Control Operator Name Role Phone Pcp, No Primary Care Provider Unavailabl e Encounter Details Date Type Department Care Team (Late st Contact Info) Description 03/02/2020 [facility] [address] [place] [address] Dental, Provider, DDS [address] [place] [address] Social History Tobacco Use Types Packs/Day [...] documented as of this encounter Care Teams Network Control Operator Relationship Specialty Start Date End Date Pcp, No [address] [place] [address] PCP - General 02/10/21 documented as of this encounter
--- OUTSIDE RECORDS SUMMARY | 2025-08-05 10:22 | XMS_ITS | Clinical Summary ---
Author Organization Healthcare Address [address] [place] [address] Care Team Providers Care Field Service Poultry Technician Name Role Phone Pcp, No Primary Care [...] pure alcohol) Alcoholic Drinks/day: Social alcohol use Clarion Depression Scale Answer Date Recorded Clarion Depression Scale Total 8 06/20/2023 The thought [...] drink first t jessica in the morning (EYE-AUTOMATIC SPREADER OPERATOR) to steady your nerves or to [...] SDOH Screenings 02/11/2010 [facility]-Adult SDOH Screenings 02/11/2010 [facility]-Pap Smear 04/29/2024 04/29/2021, 08/07, 01/01/2015, Additional history exists [facility]-Depression Screening 06/20/2024 06/20/2023 [id number] Vaccine ( season) 2025 08/09/2021, 07/07/2021 [facility]-Influenza [...] 10/13/2022, 04/29/2021 [facility]-Hepatitis C Screening Completed 10/13/2022, HPV Vaccines (No Doses Required) Completed [facility]-HIB Vaccines Aged Out No longer e [...] Reactive Non Reactive 10/13/2022 3:28 PM EST [facility] Comment:Screening for HIV 1 & 2 antibodies, and P24 antigen is NONREACTIVE. No confirmatory testing is required. Blood Venous blood specimen / Unknown Venipuncture / Unknown 10/13/2022 11:27 AM EST 10/13/2022 11:27 AM EST us Eileen Felipe APRN LAB BLOOD ORDERABLES Final Result [facility] [address] [place] [address] * Hepatitis C Antibody (10/13/2022 11:27 AM EST) Hepatitis C Antibody Negative Negative 10/13/2022 3:24 PM EST [facility] Blood Venous blood specimen / Unknown Venipuncture / Unknown 10/13/2022 11:27 AM EST 10/13/2022 11:27 AM EST us Eileen Felipe REAL ESTATE SALES AGENT LAB BLOOD ORDERABLES Final Result [facility] [address] [place] [address] * Pap Smear (04/29/2021 4:09 PM EDT) Case Report Cytology Case: [id number] Authorizing Provider: Kinga Almonte MD Collected: 04/29/2021 1609 Ordering Location: Medical Office Building Received: 04/29/2021 1633 Obstetrics and Gynecology First Screen: CHANA Pacheco Specimen: ThinPrep Pap Test, Liquid-Based Cervical/Vaginal, CERVICAL/VAGINAL 05/04/2021 9:35 AM EDT [facility] Interpretation NEGATIVE FOR INTRAEPITHELIAL LESION OR MALIGNANCY 05/04/2021 9:35 AM EDT [facility] at 0935 EDT Specimen Adequacy Satisfactory for evaluation; endocervical/pennington sformation zone component absent/insufficie nt. Slide examined with DEQ ThinPrep Imaging System but manually screened for technical reasons. 05/04/2021 9:35 AM EDT [facility] Cervical cytology is a screening [...] results is suggested (please call Microbiology at [phone] for results). 05/04/2021 9:35 AM EDT [facility] Menstrual Status 05/04/20 9:35 AM EDT [facility] Contraceptive History Not Applicable 05/04/2021 9:35 AM EDT [facility] Last Menstrual Period 02/10/2021 05/04/2021 9:35 AM EDT [facility] Screening Type Routine Screen 2020 9:35 AM EDT [facility] High Risk? No 05/04/2021 9:35 AM EDT [facility] HPV Testing Requested? Request HPV [...] ORDERABLES Susanne wallace Result [facility] [address] [place] [address] from Last 3 Months or Most Recently Relevant to Health Maintenance Additional Health Concerns Active Problems Noted Date Diagnosed Date CPM S22 PP LABOR (OBSTETRICS) 10/13/2022 Insurance Advance Directives * Full Code (Latest Code Status on File) Date Activated Date Inactivated Comments 05/14/2023 6:20 AM 05/16/2023 4:19 PM Question Answer Comments Patient has decision-making capacity? Yes Care Teams Field Service Poultry Technician Relationship Specialty Start Date End Date Pcp, No [address] [place] [address] PCP - General 02/10/21
--- OUTSIDE RECORDS SUMMARY | 2025-08-05 10:22 | XMS_ITS | Encounter Summary ---
Author Organization Healthcare Address [address] [id number] Care Team Providers Care Visualizer Name Role Phone Pcp, No Primary Care Provider Unavailabl e Encounter Details Date Type Department Care Team (Late st Contact Info) Description 03/02/2020 [facility] [address] [place] [address] Dental, Provider, DDS [address] [place] [address] Social History Tobacco Use Types Packs/Day [...] documented as of this encounter Care Teams Visualizer Relationship Specialty Start Date End Date Pcp, No [address] [place] [address] PCP - General 02/10/21 documented as of this encounter
== END 2025-08-04 23:59 | disposition home or self-care (01) ==
LOC: LAB.DROPOF 08-05 10:18
PROVIDERS: PCP Obstetrics & Gynecology; Visit Provider Obstetrics & Gynecology
DX: O36.60X0 Maternal care for excessive fetal growth, unspecified trimester, not applicable or unspecified (principal); O12.10 Gestational proteinuria, unspecified trimester; Z3A.00 Weeks of gestation of pregnancy not specified
CPT/HCPCS: 86403

== ENCOUNTER 2025-08-05 12:52 | Outpatient (CLI) | payer OTHER, SELFPAY ==
--- OUTSIDE RECORDS SUMMARY | 2025-08-05 12:56 | XMS_ITS | Clinical Summary ---
Author Organization Healthcare Address [address] 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 No confirmatory testing is required. Blood Venous blood specimen / Unknown Venipuncture / Unknown 10/13/2022 11:27 AM EST 10/13/2022 11:27 AM EST us Eileen Felipe APRN LAB BLOOD ORDERABLES Final Result [facility] [address] [place] [address] * Hepatitis C Antibody (10/13/2022 11:27 AM EST) Hepatitis C Antibody Negative Negative 10/13/2022 3:24 PM EST [facility] Blood Venous blood specimen / Unknown Venipuncture / Unknown 10/13/2022 11:27 AM EST 10/13/2022 11:27 AM EST us Eileen Felipe SPECIALTY SALES CONSULTANT LAB BLOOD ORDERABLES Final Result [facility] [address] [place] [address] * Pap Smear (04/29/2021 4:09 PM EDT) Case Report Cytology Case: [id number] Authorizing Provider: Kinga Almonte MD Collected: 04/29/2021 1609 Ordering Location: Medical Office Building Received: 04/29/2021 1633 Obstetrics and Gynecology First Screen: CHANA Pacheco Specimen: ThinPrep Pap Test, Liquid-Based Cervical/Vaginal, CERVICAL/VAGINAL 05/04/2021 9:35 AM EDT [facility] Interpretation NEGATIVE FOR INTRAEPITHELIAL LESION OR MALIGNANCY 05/04/2021 9:35 AM EDT [facility] at 0935 EDT Specimen Adequacy Satisfactory for evaluation; endocervical/pennington sformation zone component absent/insufficie nt. Slide examined with [employer] ThinPrep Imaging System but manually screened for technical reasons. 05/04/2021 9:35 AM EDT [facility] Cervical cytology is a screening test [...] results is suggested (please call Microbiology at [phone] for results). 05/04/2021 9:35 AM EDT [facility] Menstrual Status 05/04/20 9:35 AM EDT [facility] Contraceptive History Not Applicable 05/04/2021 9:35 AM EDT [facility] Last Menstrual Period 02/10/2021 05/04/2021 9:35 [...] ORDERABLES Susanne wallace Result [facility] [address] [place] [address] from Last 3 Months or Most Recently Relevant to Health Maintenance Additional Health Concerns Active Problems Noted Date Diagnosed Date CPM S22 PP LABOR (OBSTETRICS) 10/13/2022 Insurance Advance Directives * Full Code (Latest Code Status on File) Date Activated Date Inactivated Comments 05/14/2023 6:20 AM 05/16/2023 4:19 PM Question Answer Comments Patient has decision-making capacity? Yes Care Teams Knitter Helper Relationship Specialty Start Date End Date Pcp, No [address] [place] [address] PCP - General 02/10/21
--- OUTSIDE RECORDS SUMMARY | 2025-08-05 12:56 | XMS_ITS | Encounter Summary ---
Author Organization Healthcare Address [address] [id number] Care Team Providers Care Wash House Supervisor Name Role Phone Pcp, No Primary Care Provider Unavailabl e Encounter Details Date Type Department Care Team (Late st Contact Info) Description 03/02/2020 [facility] [address] [place] [address] Dental, Provider, DDS [address] [place] [address] Social History Tobacco Use Types Packs/Day [...] documented as of this encounter Care Teams Wash House Supervisor Relationship Specialty Start Date End Date Pcp, No [address] [place] [address] PCP - General 02/10/21 documented as of this encounter
--- OUTSIDE RECORDS SUMMARY | 2025-08-05 12:56 | XMS_ITS | Encounter Summary ---
Author Organization Healthcare Address [address] [phone] Care Team Providers Care Tool Hardener Name Role Phone Pcp, No Primary Care Provider Unavailabl e Encounter Details Date Type Department Care Team (Late st Contact Info) Description 03/02/2020 [facility] [address] [place] [address] Dental, Provider, DDS [address] [place] [address] Social History Tobacco Use Types Packs/Day [...] documented as of this encounter Care Teams Tool Hardener Relationship Specialty Start Date End Date Pcp, No [address] [place] [address] PCP - General 02/10/21 documented as of this encounter
--- NOTE | 2025-08-05 13:00 | US_ITS ---
PROCEDURE: US OB BIOPHYSICAL PROFILE CLINICAL INDICATION: BPP on 08/04/25 or 08/05/25 COMPARISON: US US OB /MATERNAL DETAIL from 04/16/2025 US US OB FOLLOW UP from 06/26/2025 FINDINGS: Transabdominal sonographic images of the uterus were obtained. From her established due date she is 36weeks 2days. The following parameters are obtained: Viable Fetus in the cephalic presentation with an anterior placenta grade 2. The cervix measures 2.85 cm in length. Average ultrasound age is 36weeks 5days Estimated weight 3,133g, 6 lb 15 oz Measurements: heart Rate = 146bpm BPD = 35weeks 4days, 38 percentile HC = 37weeks 3days, 46 percentile AC = 38weeks 4days, 97 percentile FL = 34weeks 6days, 12 percentile HC/AC is 0.95 FL/BPD is 0.77 FL/AC is 0.2 76 percentile Amniotic fluid index: 15.23cm, MVP 7.33 cm Qualitative AFV:2 Breathing movements: 2 Gross Body Movements: 2 Tone: 2 Biophysical profile score: 8 No obvious anomalies evident.Kidneys, profile, stomach, bladder, three-vessel cord appear normal. IMPRESSION: 1. Viable fetus in the cephalic presentation with an anterior placenta grade 2. 2. Fluid is within normal limits with an amniotic fluid index 15.2 cm, MVP 7.33 cm. 3. Biophysical profile is 8/8 with good breathing movement and movement seen. 4. There has been good interval growth with the fetus currently 76th percentile. The abdominal circumference is 2 weeks ahead. 5. Limited anatomical scan appears normal. Dictated by: Chago Abbott MD 08/06/2025 07:28 Chago Abbott MD in OV 08/06/2025 07:28
== END 2025-08-05 23:59 | disposition home or self-care (01) ==
LOC: RAD 12:53
PROVIDERS: PCP Obstetrics & Gynecology; Visit Provider Obstetrics & Gynecology
DX: O36.63X0 Maternal care for excessive fetal growth, third trimester, not applicable or unspecified (principal); Z3A.36 36 weeks gestation of pregnancy
CPT/HCPCS: 76816; 76819